=== PATIENT | male | born 1970 | race Two or more races ===

== ENCOUNTER 2019-02-14 15:01 | Emergency (ER) | payer MEDICARE, OTHER ==
[~2019-02-14] VITALS: Ht 165.1 cm; Wt 90.9 kg
[~2019-02-14 15:01] MED LIST: ALBUTEROL 2 PUFFS IH; BENZ1TAB70 PO; DIVA-78 PO; GABA-531 PO; PARO30TA76 PO; RAMI5CAP67 PO; TRIL8 PO
[2019-02-14 16:30] VITALS: BP 158/71
[2019-02-14 17:08] LABS: BASOPHILS % (AUTO) 1.2 % (0.0-2.0); EOSINOPHILS % (AUTO) 2.4 % (1.0-6.0); HEMATOCRIT 50.5 % (41-53); HEMOGLOBIN 17.3 g/dL (13.5-17.5); LYMPHOCYTES # (AUTO) 2.6 K/uL (1.0-4.8); MEAN CORPUSCULAR HEMOGLOBIN 29.8 pg (26.0-34.0); MEAN CORPUSCULAR HGB CONC 34.2 G/dL (31.0-37.0); MEAN CORPUSCULAR VOLUME 87 fL (80-100); MONOCYTES # (AUTO) 0.7 K/uL (0.1-1.0); MONOCYTES % (AUTO) 6.9 % (2.0-9.0); NEUTROPHILS % (AUTO) 65.5 % (40.0-70.0); PLATELET COUNT (AUTO) 304 K/uL (150-450); RED BLOOD CELL COUNT(AUTO) 5.79 MIL/uL (4.50-5.90); RED CELL DISTRIBUTION WIDTH 14.4 % (11.5-14.5)
[2019-02-14 17:20] LABS: ANION GAP 10 mmol/L (8-16); CARBON DIOXIDE 24 mmol/L (22-29); CHLORIDE 101 mmol/L (98-107); CREATININE 0.91 mg/dL (0.60-1.30); GLUCOSE,RANDOM 118 mg/dL (70-110); POTASSIUM 3.6 mmol/L (3.5-5.1); SODIUM SERUM 135 mmol/L (136-145); UREA NITROGEN, BLOOD 17 mg/dL (7-18)
[2019-02-14 17:21] LABS: CALCIUM, TOTAL 8.8 mg/dL (8.8-10.5); GLOMERULAR FILTR. RATE CALC > 60 mL/min (>60)
[2019-02-14 17:27] LABS: ALANINE AMINOTRANSFERASE 27 U/L (12-78); ALBUMIN 4.1 g/dL (3.4-5.0); ALKALINE PHOSPHATASE 127 U/L (46-116); ASPARTATE AMINOTRANSFERASE 26 U/L (15-37); BILIRUBIN,TOTAL 0.5 mg/dL (0.1-1.0); TOTAL PROTEIN, SERUM 7.9 g/dL (6.4-8.2)
[2019-02-14 17:50] LABS: VALPROIC ACID < 3 mcg/mL (50-100)
== END 2019-02-14 18:30 | disposition left against medical advice (07) ==
LOC: EMS 15:02
DX: Z53.21 Procedure and treatment not carried out due to patient leaving prior to being seen by health care provider (principal)
CPT/HCPCS: 80053; 80164; 85025; G0480

== ENCOUNTER 2019-02-22 11:29 | Emergency (ER) | payer MEDICARE, OTHER ==
[~2019-02-22] VITALS: Ht 175.3 cm; Wt 90.9 kg
[2019-02-22 11:35] VITALS: BP 155/92
[2019-02-22] MEDS ORDERED: CLON.5 PO (11:40)
== END 2019-02-22 13:29 | disposition home or self-care (01) ==
LOC: EMS 11:33
DX: M79.644 Pain in right finger(s) (principal); F17.200 Nicotine dependence, unspecified, uncomplicated; Z88.8 Allergy status to other drugs, medicaments and biological substances

== ENCOUNTER 2019-03-01 10:35 | Inpatient (IN) | payer MEDICARE, MEDICAID ==
[~2019-03-01] VITALS: Ht 172.7 cm; Wt 89.4 kg
[~2019-03-01 10:35] MED LIST changes: +CLON.5 PO
[2019-03-01 12:31] LABS: BASOPHILS % (AUTO) 1.1 % (0.0-2.0); EOSINOPHILS % (AUTO) 2.2 % (1.0-6.0); HEMATOCRIT 50.1 % (41-53); HEMOGLOBIN 17.1 g/dL (13.5-17.5); LYMPHOCYTES # (AUTO) 2.4 K/uL (1.0-4.8); LYMPHOCYTES % (AUTO) 22.6 % (22.0-44.0); MEAN CORPUSCULAR HGB CONC 34.2 G/dL (31.0-37.0); MEAN CORPUSCULAR VOLUME 88 fL (80-100); MONOCYTES # (AUTO) 0.8 K/uL (0.1-1.0); MONOCYTES % (AUTO) 7.4 % (2.0-9.0); NEUTROPHILS % (AUTO) 66.7 % (40.0-70.0); RED BLOOD CELL COUNT(AUTO) 5.72 MIL/uL (4.50-5.90)
[2019-03-01 12:34] LABS: ANION GAP 9 mmol/L (8-16); CALCIUM, TOTAL 9.3 mg/dL (8.8-10.5); CARBON DIOXIDE 27 mmol/L (22-29); CHLORIDE 101 mmol/L (98-107); CREATININE 0.78 mg/dL (0.60-1.30); GLOMERULAR FILTR. RATE CALC > 60 mL/min (>60); GLUCOSE,RANDOM 131 mg/dL (70-110); SODIUM SERUM 137 mmol/L (136-145); UREA NITROGEN, BLOOD 11 mg/dL (7-18)
[2019-03-01 12:40] LABS: ALANINE AMINOTRANSFERASE 49 U/L (12-78); ALKALINE PHOSPHATASE 152 U/L (46-116); ASPARTATE AMINOTRANSFERASE 40 U/L (15-37); BILIRUBIN,TOTAL 0.3 mg/dL (0.1-1.0); TOTAL PROTEIN, SERUM 7.9 g/dL (6.4-8.2)
[2019-03-01 12:41] LABS: VALPROIC ACID < 3 mcg/mL (50-100)
[2019-03-01 12:42] LABS: PLATELET COUNT (AUTO) 313 K/uL (150-450)
[2019-03-01] MEDS ORDERED: HALOPERIDOL 5 MG TABLET PO PRN (14:00)
[2019-03-01] MEDS ORDERED: ZOLPIDEM TARTRATE 10 MG TABLET PO PRN (14:00)
[2019-03-01] MEDS ORDERED: LORazepam 2 MG TABLET PO PRN (14:00)
[2019-03-01] MEDS ORDERED: MAGNESIUM HYDROXIDE SUSPENSION 30 ML UDCUP PO PRN (16:00)
[2019-03-01] MEDS ORDERED: CloNIDine HCL 0.1 MG TABLET PO PRN (16:00)
[2019-03-01] MEDS ORDERED: ALBUTEROL SULFATE HFA 90 MCG/PUFF 8 GM INHALER IH PRN (16:00)
[2019-03-01] MEDS ORDERED: ONDANSETRON HCL 4 MG TABLET PO PRN (16:00)
[2019-03-01] MEDS ORDERED: NICOTINE 14 MG/24 HOUR PATCH TD PRN (16:00)
[2019-03-01] MEDS ORDERED: IBUPROFEN 400 MG TABLET PO PRN (16:00)
[2019-03-01] MEDS ORDERED: GuaiFENesin/D-METHORPHAN [SUGAR-FREE] 200-20MG/10 ML SYRUP UDCUP PO PRN (16:00)
[2019-03-01] MEDS ORDERED: PETROLATUM,WHITE 28 GM JELLY TP PRN (16:00)
[2019-03-01] MEDS ORDERED: ACETAMINOPHEN 325 MG TABLET PO PRN (16:00)
[2019-03-01] MEDS ORDERED: MAG HYDROX/AL HYDROX/SIMETH ES 30 ML SUSPENSION UDCUP PO PRN (16:00)
[2019-03-01] MEDS ORDERED: LOPERAMIDE HCL 2 MG CAPSULE PO PRN (16:00)
[2019-03-01] MEDS ORDERED: DOCUSATE SODIUM 100 MG CAPSULE PO PRN (16:00)
[2019-03-01 16:45] VITALS: BP 130/85
[2019-03-02] MEDS ORDERED: INFLUENZA VIRUS VACCINE QVS 2019-20 (3YR+)/PF 60 MCG/0.5 ML SYRINGE IM ONE (00:45)
[2019-03-02] MEDS ORDERED: PNEUMOCOCCAL VACCINE POLYVALENT 0.5 ML VIAL [PPSV23] IM ONE (02:15)
[2019-03-02 06:43] VITALS: BP 134/68
[2019-03-02 07:57] LABS: CHOL/HDL RATIO 3.8 (4.2-7.3); FREE T4 (FREE THYROXINE) 0.97 ng/dL (0.76-1.46); THYROID STIMULATING HORMONE 1.17 uIU/mL (0.36-3.74)
[2019-03-02 08:19] VITALS: BP 122/82
[2019-03-02] MEDS: RAMIPRIL 5 MG CAPSULE PO SCH (08:19)
[2019-03-02] MEDS: FLUoxetine HCL 20 MG CAPSULE PO SCH (11:30)
[2019-03-02 16:02] VITALS: BP 111/69
[2019-03-02] MEDS: DIVALPROEX SODIUM 500 MG DR TABLET PO SCH (16:34)
[2019-03-02] MEDS: RisperiDONE 4 MG TABLET PO SCH (16:34)
[2019-03-03 00:28] VITALS: BP 118/72
[2019-03-03 08:15] VITALS: BP 140/80
[2019-03-03] MEDS: RisperiDONE 4 MG TABLET PO SCH ×2 (09:00→16:22)
[2019-03-03] MEDS: DIVALPROEX SODIUM 500 MG DR TABLET PO SCH ×2 (09:00→16:22)
[2019-03-03] MEDS: RAMIPRIL 5 MG CAPSULE PO SCH (09:00)
[2019-03-03] MEDS: FLUoxetine HCL 20 MG CAPSULE PO SCH ×2 (09:00→14:57)
[2019-03-03 22:07] VITALS: BP 136/70
[2019-03-04 00:07] VITALS: BP 131/82
[2019-03-04] MEDS: RAMIPRIL 5 MG CAPSULE PO SCH (08:38)
[2019-03-04] MEDS: RisperiDONE 4 MG TABLET PO SCH ×2 (08:38→16:30)
[2019-03-04] MEDS: FLUoxetine HCL 20 MG CAPSULE PO SCH (08:38)
[2019-03-04] MEDS: DIVALPROEX SODIUM 500 MG DR TABLET PO SCH ×2 (08:42→16:30)
[2019-03-04 10:34] VITALS: BP 136/86
[2019-03-04 16:06] VITALS: BP 124/64
[2019-03-05 00:43] VITALS: BP 130/65
[2019-03-05] MEDS: RAMIPRIL 5 MG CAPSULE PO SCH (08:07)
[2019-03-05] MEDS: DIVALPROEX SODIUM 500 MG DR TABLET PO SCH ×2 (08:08→16:42)
[2019-03-05] MEDS: FLUoxetine HCL 20 MG CAPSULE PO SCH (08:08)
[2019-03-05] MEDS: RisperiDONE 4 MG TABLET PO SCH ×2 (08:08→16:42)
[2019-03-05 08:21] VITALS: BP 140/83
[2019-03-05 16:06] VITALS: BP 120/70
[2019-03-06 00:11] VITALS: BP 127/63
[2019-03-06] MEDS: FLUoxetine HCL 20 MG CAPSULE PO SCH (08:08)
[2019-03-06] MEDS: RisperiDONE 4 MG TABLET PO SCH ×2 (08:08→17:29)
[2019-03-06] MEDS: DIVALPROEX SODIUM 500 MG DR TABLET PO SCH ×2 (08:08→17:29)
[2019-03-06] MEDS: RAMIPRIL 5 MG CAPSULE PO SCH (08:08)
[2019-03-06 08:39] VITALS: BP 135/88
[2019-03-06 16:03] VITALS: BP 123/80
[2019-03-07 08:47] VITALS: BP 110/81
[2019-03-07] MEDS: DIVALPROEX SODIUM 500 MG DR TABLET PO SCH ×2 (09:08→16:30)
[2019-03-07] MEDS: RisperiDONE 4 MG TABLET PO SCH ×2 (09:08→16:30)
[2019-03-07] MEDS: RAMIPRIL 5 MG CAPSULE PO SCH (09:08)
[2019-03-07] MEDS: FLUoxetine HCL 20 MG CAPSULE PO SCH (09:08)
[2019-03-07 16:29] VITALS: BP 128/75
[2019-03-08 00:07] VITALS: BP 122/71
[2019-03-08 08:04] VITALS: BP 132/84
[2019-03-08] MEDS: DIVALPROEX SODIUM 500 MG DR TABLET PO SCH ×2 (08:07→16:35)
[2019-03-08] MEDS: FLUoxetine HCL 20 MG CAPSULE PO SCH (08:07)
[2019-03-08] MEDS: RisperiDONE 4 MG TABLET PO SCH ×2 (08:07→16:35)
[2019-03-08] MEDS: RAMIPRIL 5 MG CAPSULE PO SCH (08:07)
[2019-03-08 16:03] VITALS: BP 143/77
[2019-03-09 05:54] VITALS: BP 140/93
[2019-03-09] MEDS: RAMIPRIL 5 MG CAPSULE PO SCH (08:08)
[2019-03-09] MEDS: DIVALPROEX SODIUM 500 MG DR TABLET PO SCH ×2 (08:08→16:07)
[2019-03-09] MEDS: FLUoxetine HCL 20 MG CAPSULE PO SCH (08:08)
[2019-03-09] MEDS: RisperiDONE 4 MG TABLET PO SCH ×2 (08:08→16:07)
[2019-03-09 08:16] VITALS: BP 125/80
[2019-03-09 16:03] VITALS: BP 124/80
[2019-03-10 00:36] VITALS: BP 130/63
[2019-03-10] MEDS ORDERED: DIVA-78 PO (05:51)
[2019-03-10] MEDS ORDERED: RISP4 PO (05:52)
[2019-03-10] MEDS ORDERED: FLUO-191 PO (05:52)
[2019-03-10 08:04] VITALS: BP 126/89
[2019-03-10] MEDS: RAMIPRIL 5 MG CAPSULE PO SCH (08:37)
[2019-03-10] MEDS: RisperiDONE 4 MG TABLET PO SCH (08:37)
[2019-03-10] MEDS: DIVALPROEX SODIUM 500 MG DR TABLET PO SCH (08:37)
[2019-03-10] MEDS: FLUoxetine HCL 20 MG CAPSULE PO SCH (08:37)
== END 2019-03-10 13:20 | disposition home or self-care (01) | DRG 885 ==
LOC: EMS 10:39 → B2X 14:43
PROVIDERS: ADMIT Psychiatry & Neurology Psychiatry; ATTEND Psychiatry & Neurology Psychiatry
DX: F20.0 Paranoid schizophrenia (principal); F17.210 Nicotine dependence, cigarettes, uncomplicated; I10 Essential (primary) hypertension; J45.909 Unspecified asthma, uncomplicated; Z91.19 Patient's noncompliance with other medical treatment and regimen
CPT/HCPCS: 83036; 84439; 84443; 87081; G0480

== ENCOUNTER 2019-05-05 11:20 | Inpatient (IN) | payer MEDICARE, MEDICAID ==
[~2019-05-05 11:20] MED LIST changes: -ALBUTEROL 2 PUFFS IH; -BENZ1TAB70 PO; -CLON.5 PO; +FLUO-191 PO; -GABA-531 PO; -PARO30TA76 PO; +RISP4 PO; -TRIL8 PO
[2019-05-05] MEDS ORDERED: DiphenhydrAMINE HCL 50 MG/ML VIAL IM ONE (11:30)
[2019-05-05] MEDS ORDERED: HALOPERIDOL LACTATE 5 MG/ML VIAL IM ONE (11:30)
[2019-05-05] MEDS ORDERED: LORazepam 2 MG/ML VIAL IM ONE (11:30)
[2019-05-05] MEDS ORDERED: LORazepam 2 MG TABLET PO PRN (12:00)
[2019-05-05] MEDS ORDERED: ZOLPIDEM TARTRATE 10 MG TABLET PO PRN (12:00)
[2019-05-05] MEDS ORDERED: HALOPERIDOL 5 MG TABLET PO PRN (12:00)
[2019-05-05] MEDS: DIVALPROEX SODIUM 500 MG DR TABLET PO SCH (16:46)
[2019-05-05] MEDS: RisperiDONE 4 MG TABLET PO SCH (16:46)
[2019-05-05] MEDS ORDERED: ALBUTEROL SULFATE HFA 90 MCG/PUFF 8 GM INHALER IH PRN (17:15)
[2019-05-05] MEDS ORDERED: MAG HYDROX/AL HYDROX/SIMETH ES 30 ML SUSPENSION UDCUP PO PRN (17:15)
[2019-05-05] MEDS ORDERED: ACETAMINOPHEN 325 MG TABLET PO PRN (17:15)
[2019-05-05] MEDS ORDERED: CloNIDine HCL 0.1 MG TABLET PO PRN (17:15)
[2019-05-05] MEDS ORDERED: LOPERAMIDE HCL 2 MG CAPSULE PO PRN (17:15)
[2019-05-05] MEDS ORDERED: DOCUSATE SODIUM 100 MG CAPSULE PO PRN (17:15)
[2019-05-05] MEDS ORDERED: IBUPROFEN 400 MG TABLET PO PRN (17:15)
[2019-05-05] MEDS ORDERED: ONDANSETRON HCL 4 MG TABLET PO PRN (17:15)
[2019-05-05] MEDS ORDERED: MAGNESIUM HYDROXIDE SUSPENSION 30 ML UDCUP PO PRN (17:15)
[2019-05-05] MEDS ORDERED: NICOTINE 14 MG/24 HOUR PATCH TD PRN (17:15)
[2019-05-05] MEDS ORDERED: PETROLATUM,WHITE 28 GM JELLY TP PRN (17:15)
[2019-05-05] MEDS ORDERED: GuaiFENesin/D-METHORPHAN [SUGAR-FREE] 200-20MG/10 ML SYRUP UDCUP PO PRN (17:15)
[2019-05-05 17:18] VITALS: BP 135/89
[2019-05-06 06:09] VITALS: BP 129/88
[2019-05-06 08:14] LABS: BASOPHILS % (AUTO) 1.2 % (0.0-2.0); EOSINOPHILS % (AUTO) 4.9 % (1.0-6.0); HEMATOCRIT 48.9 % (41-53); HEMOGLOBIN 16.4 g/dL (13.5-17.5); LYMPHOCYTES # (AUTO) 2.4 K/uL (1.0-4.8); LYMPHOCYTES % (AUTO) 28.8 % (22.0-44.0); MEAN CORPUSCULAR HEMOGLOBIN 29.8 pg (26.0-34.0); MEAN CORPUSCULAR HGB CONC 33.5 G/dL (31.0-37.0); MEAN CORPUSCULAR VOLUME 89 fL (80-100); MONOCYTES # (AUTO) 0.6 K/uL (0.1-1.0); NEUTROPHILS # (AUTO) 4.8 K/uL (1.8-7.7); NEUTROPHILS % (AUTO) 58.1 % (40.0-70.0); PLATELET COUNT (AUTO) 254 K/uL (150-450); RED CELL DISTRIBUTION WIDTH 13.4 % (11.5-14.5)
[2019-05-06 08:18] VITALS: BP 132/82
[2019-05-06] MEDS: RisperiDONE 4 MG TABLET PO SCH ×2 (08:23→16:31)
[2019-05-06] MEDS: FLUoxetine HCL 20 MG CAPSULE PO SCH (08:23)
[2019-05-06] MEDS: DIVALPROEX SODIUM 500 MG DR TABLET PO SCH ×2 (08:23→16:31)
[2019-05-06 08:39] LABS: ALANINE AMINOTRANSFERASE 29 U/L (12-78); ALBUMIN 3.5 g/dL (3.4-5.0); ALKALINE PHOSPHATASE 88 U/L (46-116); ANION GAP 7 mmol/L (8-16); ASPARTATE AMINOTRANSFERASE 22 U/L (15-37); BILIRUBIN,TOTAL 0.3 mg/dL (0.1-1.0); CALCIUM, TOTAL 9.1 mg/dL (8.8-10.5); CARBON DIOXIDE 29 mmol/L (22-29); CHLORIDE 102 mmol/L (98-107); CHOL/HDL RATIO 3.6 (4.2-7.3); CHOLESTEROL 127 mg/dL (131-200); CREATININE 0.79 mg/dL (0.60-1.30); GLOMERULAR FILTR. RATE CALC > 60 mL/min (>60); GLUCOSE,RANDOM 100 mg/dL (70-110); HDL CHOLESTEROL 35 mg/dL (40-60); LDL CHOL (CALC.) 67 mg/dL (0-130); POTASSIUM 4.1 mmol/L (3.5-5.1); SODIUM SERUM 138 mmol/L (136-145); TOTAL PROTEIN, SERUM 7.4 g/dL (6.4-8.2); TRIGLYCERIDES 126 mg/dL (15-150); UREA NITROGEN, BLOOD 14 mg/dL (7-18)
[2019-05-06 08:42] LABS: HEMOGLOBIN A1C 5.5 % (3.8-5.6)
[2019-05-06] MEDS ORDERED: IBUPROFEN 400 MG TABLET PO PRN (09:45)
[2019-05-06] MEDS ORDERED: ALBUTEROL SULFATE HFA 90 MCG/PUFF 8 GM INHALER IH PRN (09:45)
[2019-05-06] MEDS ORDERED: LOPERAMIDE HCL 2 MG CAPSULE PO PRN (09:45)
[2019-05-06] MEDS ORDERED: CloNIDine HCL 0.1 MG TABLET PO PRN (09:45)
[2019-05-06] MEDS ORDERED: DOCUSATE SODIUM 100 MG CAPSULE PO PRN (09:45)
[2019-05-06] MEDS ORDERED: GuaiFENesin/D-METHORPHAN [SUGAR-FREE] 200-20MG/10 ML SYRUP UDCUP PO PRN (09:45)
[2019-05-06] MEDS ORDERED: ONDANSETRON HCL 4 MG TABLET PO PRN (09:45)
[2019-05-06] MEDS ORDERED: MAGNESIUM HYDROXIDE SUSPENSION 30 ML UDCUP PO PRN (09:45)
[2019-05-06] MEDS ORDERED: NICOTINE 14 MG/24 HOUR PATCH TD PRN (09:45)
[2019-05-06] MEDS ORDERED: PETROLATUM,WHITE 28 GM JELLY TP PRN (09:45)
[2019-05-06] MEDS ORDERED: ACETAMINOPHEN 325 MG TABLET PO PRN (09:45)
[2019-05-06] MEDS ORDERED: MAG HYDROX/AL HYDROX/SIMETH ES 30 ML SUSPENSION UDCUP PO PRN (09:45)
[2019-05-06] MEDS ORDERED: INFLUENZA VIRUS VACCINE QVS 2019-20 (3YR+)/PF 60 MCG/0.5 ML SYRINGE IM ONE (16:00)
[2019-05-06 16:10] VITALS: BP 125/87
[2019-05-07 00:13] VITALS: BP 123/85
[2019-05-07 07:52] LABS: ALANINE AMINOTRANSFERASE 29 U/L (12-78); ALBUMIN 3.4 g/dL (3.4-5.0); ALKALINE PHOSPHATASE 90 U/L (46-116); ANION GAP 8 mmol/L (8-16); ASPARTATE AMINOTRANSFERASE 20 U/L (15-37); BILIRUBIN,TOTAL 0.3 mg/dL (0.1-1.0); CALCIUM, TOTAL 9.2 mg/dL (8.8-10.5); CARBON DIOXIDE 29 mmol/L (22-29); CHLORIDE 102 mmol/L (98-107); CREATININE 0.77 mg/dL (0.60-1.30); GLOMERULAR FILTR. RATE CALC > 60 mL/min (>60); GLUCOSE,RANDOM 99 mg/dL (70-110); POTASSIUM 4.2 mmol/L (3.5-5.1); SODIUM SERUM 139 mmol/L (136-145); TOTAL PROTEIN, SERUM 6.8 g/dL (6.4-8.2); UREA NITROGEN, BLOOD 13 mg/dL (7-18)
[2019-05-07 08:02] VITALS: BP 133/89
[2019-05-07] MEDS: FLUoxetine HCL 20 MG CAPSULE PO SCH (08:15)
[2019-05-07] MEDS: RisperiDONE 4 MG TABLET PO SCH ×2 (08:15→16:28)
[2019-05-07] MEDS: DIVALPROEX SODIUM 500 MG DR TABLET PO SCH ×2 (08:15→16:28)
[2019-05-07] MEDS: RAMIPRIL 5 MG CAPSULE PO SCH (08:15)
[2019-05-07] MEDS: BACITRACIN 28.4 GM OINTMENT TP SCH ×2 (15:19→19:55)
[2019-05-07 16:07] VITALS: BP 131/79
[2019-05-08 00:19] VITALS: BP 140/70
[2019-05-08 08:04] VITALS: BP 117/82
[2019-05-08] MEDS: FLUoxetine HCL 20 MG CAPSULE PO SCH (09:28)
[2019-05-08] MEDS: DIVALPROEX SODIUM 500 MG DR TABLET PO SCH ×2 (09:28→16:10)
[2019-05-08] MEDS: RisperiDONE 4 MG TABLET PO SCH (09:28)
[2019-05-08] MEDS: BACITRACIN 28.4 GM OINTMENT TP SCH ×2 (10:54→16:12)
[2019-05-08] MEDS ORDERED: PALIPERIDONE PALMITATE 234 MG/1.5 ML SYRINGE IM SCH (11:00)
[2019-05-08 12:35] VITALS: BP 134/91
[2019-05-08] MEDS: RAMIPRIL 5 MG CAPSULE PO SCH (12:44)
[2019-05-08 16:07] VITALS: BP 124/86
[2019-05-09 00:29] VITALS: BP 118/65
[2019-05-09] MEDS: DIVALPROEX SODIUM 500 MG DR TABLET PO SCH ×2 (08:22→16:21)
[2019-05-09] MEDS: FLUoxetine HCL 20 MG CAPSULE PO SCH (08:22)
[2019-05-09] MEDS: RAMIPRIL 5 MG CAPSULE PO SCH (08:22)
[2019-05-09] MEDS: BACITRACIN 28.4 GM OINTMENT TP SCH ×2 (08:23→16:21)
[2019-05-09 08:42] VITALS: BP 149/88
[2019-05-09 16:02] VITALS: BP 118/81
[2019-05-09] MEDS: RisperiDONE 4 MG TABLET PO SCH (20:31)
[2019-05-10 06:28] VITALS: BP 128/78
[2019-05-10 08:07] VITALS: BP 140/83
[2019-05-10] MEDS: DIVALPROEX SODIUM 500 MG DR TABLET PO SCH ×2 (08:51→16:46)
[2019-05-10] MEDS: BACITRACIN 28.4 GM OINTMENT TP SCH ×2 (08:51→16:45)
[2019-05-10] MEDS: FLUoxetine HCL 20 MG CAPSULE PO SCH (08:51)
[2019-05-10] MEDS: RAMIPRIL 5 MG CAPSULE PO SCH (08:51)
[2019-05-10 16:02] VITALS: BP 116/75
[2019-05-10] MEDS: RisperiDONE 4 MG TABLET PO SCH (20:19)
[2019-05-11 02:31] VITALS: BP 117/73
[2019-05-11 08:24] VITALS: BP 155/80
[2019-05-11] MEDS: FLUoxetine HCL 20 MG CAPSULE PO SCH (08:59)
[2019-05-11] MEDS: RAMIPRIL 5 MG CAPSULE PO SCH (08:59)
[2019-05-11] MEDS: DIVALPROEX SODIUM 500 MG DR TABLET PO SCH ×2 (08:59→16:14)
[2019-05-11] MEDS: BACITRACIN 28.4 GM OINTMENT TP SCH ×2 (10:48→16:16)
[2019-05-11 16:02] VITALS: BP 119/79
[2019-05-11] MEDS: RisperiDONE 4 MG TABLET PO SCH (20:39)
[2019-05-12 00:48] VITALS: BP 138/76
[2019-05-12 08:09] VITALS: BP 120/69
[2019-05-12] MEDS: DIVALPROEX SODIUM 500 MG DR TABLET PO SCH ×2 (08:22→16:45)
[2019-05-12] MEDS: BACITRACIN 28.4 GM OINTMENT TP SCH ×2 (08:22→16:46)
[2019-05-12] MEDS: FLUoxetine HCL 20 MG CAPSULE PO SCH (08:22)
[2019-05-12] MEDS: RAMIPRIL 5 MG CAPSULE PO SCH (08:22)
[2019-05-12 17:20] VITALS: BP 111/70
[2019-05-12] MEDS: RisperiDONE 4 MG TABLET PO SCH (20:39)
[2019-05-13 01:54] VITALS: BP 111/73
[2019-05-13 08:04] VITALS: BP 124/89
[2019-05-13] MEDS: DIVALPROEX SODIUM 500 MG DR TABLET PO SCH ×2 (08:27→16:28)
[2019-05-13] MEDS: RAMIPRIL 5 MG CAPSULE PO SCH (08:27)
[2019-05-13] MEDS: FLUoxetine HCL 20 MG CAPSULE PO SCH (08:27)
[2019-05-13] MEDS: BACITRACIN 28.4 GM OINTMENT TP SCH ×2 (08:28→16:28)
[2019-05-13 16:01] VITALS: BP 128/78
[2019-05-13] MEDS: RisperiDONE 4 MG TABLET PO SCH (20:31)
[2019-05-14 00:20] VITALS: BP 121/69
[2019-05-14 03:07] VITALS: BP 113/72
[2019-05-14] MEDS: FLUoxetine HCL 20 MG CAPSULE PO SCH (08:27)
[2019-05-14] MEDS: DIVALPROEX SODIUM 500 MG DR TABLET PO SCH (08:27)
[2019-05-14] MEDS: RAMIPRIL 5 MG CAPSULE PO SCH (08:27)
[2019-05-14 08:30] VITALS: BP 116/68
[2019-05-14] MEDS: BACITRACIN 28.4 GM OINTMENT TP SCH (09:06)
[2019-05-14] MEDS ORDERED: FLUO-191 PO (09:22)
[2019-05-14] MEDS ORDERED: DIVA-78 PO (09:22)
[2019-05-14] MEDS ORDERED: PALI234D IM (09:22)
[2019-05-14] MEDS ORDERED: RISP4 PO (09:22)
[2019-05-14] MEDS ORDERED: BACI500P3 TP (09:53)
[2019-05-14] MEDS ORDERED: RAMI5CAP67 PO (09:54)
== END 2019-05-14 10:35 | disposition home or self-care (01) | DRG 885 ==
LOC: B2X 12:12
DX: F20.0 Paranoid schizophrenia (principal); F94.0 Selective mutism; R73.9 Hyperglycemia, unspecified; I10 Essential (primary) hypertension; J45.909 Unspecified asthma, uncomplicated; Z79.899 Other long term (current) drug therapy; Z91.5 Personal history of self-harm
CPT/HCPCS: 83036; 84439; 84443; J1200; J1630; J2060

== ENCOUNTER 2019-12-07 19:43 | Inpatient (IN) | payer MEDICARE, MEDICAID ==
[~2019-12-07] VITALS: Ht 170.2 cm; Wt 94.5 kg
[~2019-12-07 19:43] MED LIST changes: +BACI500P3 TP; +DIVA-112 PO; -DIVA-78 PO; +PALI234D IM; -RISP4 PO; +RISP4TAB73 PO
[2019-12-07 21:23] LABS: BASOPHILS % (AUTO) 0.7 % (0.0-2.0); EOSINOPHILS % (AUTO) 3.3 % (1.0-6.0); HEMATOCRIT 50.6 % (41-53); HEMOGLOBIN 16.7 g/dL (13.5-17.5); LYMPHOCYTES # (AUTO) 2.2 K/uL (1.0-4.8); LYMPHOCYTES % (AUTO) 19.6 % (22.0-44.0); MEAN CORPUSCULAR HGB CONC 33.1 G/dL (31.0-37.0); MEAN CORPUSCULAR VOLUME 88 fL (80-100); MONOCYTES # (AUTO) 0.6 K/uL (0.1-1.0); MONOCYTES % (AUTO) 5.4 % (2.0-9.0); PLATELET COUNT (AUTO) 276 K/uL (150-450); RED BLOOD CELL COUNT(AUTO) 5.77 MIL/uL (4.50-5.90); RED CELL DISTRIBUTION WIDTH 13.6 % (11.5-14.5)
[2019-12-07 21:32] LABS: ANION GAP 12 mmol/L (8-16); CALCIUM, TOTAL 9.2 mg/dL (8.8-10.5); CARBON DIOXIDE 27 mmol/L (22-29); CHLORIDE 105 mmol/L (98-107); CREATININE 0.93 mg/dL (0.60-1.30); GLOMERULAR FILTR. RATE CALC > 60 mL/min (>60); GLUCOSE,RANDOM 159 mg/dL (70-110); POTASSIUM 3.6 mmol/L (3.5-5.1); SODIUM SERUM 144 mmol/L (136-145); UREA NITROGEN, BLOOD 12 mg/dL (7-18)
[2019-12-07 21:39] LABS: ALANINE AMINOTRANSFERASE 22 U/L (12-78); ALKALINE PHOSPHATASE 116 U/L (46-116); ASPARTATE AMINOTRANSFERASE 18 U/L (15-37); BILIRUBIN,TOTAL 0.2 mg/dL (0.1-1.0); TOTAL PROTEIN, SERUM 7.5 g/dL (6.4-8.2)
[2019-12-07 21:58] LABS: VALPROIC ACID < 3 mcg/mL (50-100)
[2019-12-07] MEDS ORDERED: LORazepam 2 MG TABLET PO PRN (23:30)
[2019-12-07] MEDS ORDERED: ZOLPIDEM TARTRATE 10 MG TABLET PO PRN (23:30)
[2019-12-08 00:18] LABS: COVID AG,FIA SOURCE NASOPHARYNGEAL
[2019-12-08 00:39] LABS: CHOL/HDL RATIO 4.3 (4.2-7.3); CHOLESTEROL 149 mg/dL (131-200); HDL CHOLESTEROL 35 mg/dL (40-60); LDL CHOL (CALC.) 82 mg/dL (0-130); TRIGLYCERIDES 159 mg/dL (15-150)
[2019-12-08 03:25] VITALS: BP 143/92
[2019-12-08] MEDS ORDERED: PNEUMOCOCCAL VACCINE POLYVALENT 0.5 ML VIAL [PPSV23] IM ONE (04:15)
[2019-12-08] MEDS ORDERED: INFLUENZA VIRUS VACCINE QVS 2020-21 (6MO+)/PF 60 MCG/0.5 ML SYRINGE IM ONE (04:15)
[2019-12-08 08:00] VITALS: BP 159/99
[2019-12-08 09:16] VITALS: BP 146/79
[2019-12-08] MEDS: DIVALPROEX SODIUM 250 MG DR TABLET PO SCH ×2 (09:53→16:17)
[2019-12-08] MEDS ORDERED: GuaiFENesin/D-METHORPHAN [SUGAR-FREE] 200-20MG/10 ML SYRUP UDCUP PO PRN ×2 (13:30→20:15)
[2019-12-08] MEDS: LISINOPRIL 10 MG TABLET PO SCH (16:17)
[2019-12-08 16:27] VITALS: BP 140/83
[2019-12-08] MEDS ORDERED: BENZOCAINE 10% 7 GM GEL TP PRN (18:30)
[2019-12-08 18:54] VITALS: BP 132/86
[2019-12-08] MEDS: IBUPROFEN 600 MG TABLET PO PRN (18:57)
[2019-12-08] MEDS ORDERED: PROMETHAZINE HCL 25 MG TABLET PO PRN (20:15)
[2019-12-08] MEDS ORDERED: MAG HYDROX/AL HYDROX/SIMETH ES 30 ML SUSPENSION UDCUP PO PRN (20:15)
[2019-12-08] MEDS ORDERED: PALIPERIDONE PALMITATE 234 MG/1.5 ML SYRINGE IM ONE (20:15)
[2019-12-08] MEDS ORDERED: MAGNESIUM HYDROXIDE SUSPENSION 30 ML UDCUP PO PRN (20:15)
[2019-12-08] MEDS ORDERED: LOPERAMIDE HCL 2 MG CAPSULE PO PRN (20:15)
[2019-12-08] MEDS ORDERED: ACETAMINOPHEN 325 MG TABLET PO PRN (20:15)
[2019-12-08] MEDS ORDERED: TUBERCULIN, PURIFIED PROTEIN DERIVATIVE 5 TU/0.1 ML SYRINGE ID ONE (20:15)
[2019-12-08] MEDS ORDERED: HydrOXYzine PAMOATE 50 MG CAPSULE PO PRN (20:15)
[2019-12-08] MEDS ORDERED: OLANZapine 5 MG RAPDIS TABLET PO SCH (21:00)
[2019-12-09 07:29] LABS: HEMOGLOBIN A1C 5.6 % (3.8-5.6)
[2019-12-09 07:34] LABS: CHOL/HDL RATIO 4.1 (4.2-7.3); FREE T4 (FREE THYROXINE) 1.12 ng/dL (0.76-1.46); THYROID STIMULATING HORMONE 0.76 uIU/mL (0.36-3.74)
[2019-12-09 08:00] VITALS: BP 147/91
[2019-12-09] MEDS: LISINOPRIL 10 MG TABLET PO SCH ×2 (08:28→16:13)
[2019-12-09] MEDS: MULTIVITAMINS WITH MINERALS, THERAPEUTIC TABLET PO SCH (08:28)
[2019-12-09] MEDS: FOLIC ACID 1 MG TABLET PO SCH (08:28)
[2019-12-09] MEDS: DIVALPROEX SODIUM 500 MG DR TABLET PO SCH ×4 (08:28→16:23)
[2019-12-09] MEDS: THIAMINE 100 MG TABLET PO SCH ×2 (08:29→16:23)
[2019-12-09 16:30] VITALS: BP 131/85
[2019-12-09] MEDS: IBUPROFEN 600 MG TABLET PO PRN (16:30)
[2019-12-09] MEDS: OLANZapine 10 MG RAPDIS TABLET PO SCH (20:36)
[2019-12-10 08:00] VITALS: BP 125/74
[2019-12-10] MEDS: DIVALPROEX SODIUM 500 MG DR TABLET PO SCH ×3 (09:00→16:24)
[2019-12-10] MEDS: LISINOPRIL 10 MG TABLET PO SCH ×2 (10:27→16:23)
[2019-12-10] MEDS: MULTIVITAMINS WITH MINERALS, THERAPEUTIC TABLET PO SCH (10:27)
[2019-12-10] MEDS: THIAMINE 100 MG TABLET PO SCH ×2 (10:28→16:23)
[2019-12-10] MEDS: FOLIC ACID 1 MG TABLET PO SCH (10:28)
[2019-12-10 16:08] VITALS: BP 131/73
[2019-12-10] MEDS ORDERED: PALIPERIDONE PALMITATE 234 MG/1.5 ML SYRINGE IM ONE (19:00)
[2019-12-10] MEDS: OLANZapine 10 MG RAPDIS TABLET PO SCH (20:25)
[2019-12-11] MEDS: THIAMINE 100 MG TABLET PO SCH ×2 (08:59→16:36)
[2019-12-11] MEDS: MULTIVITAMINS WITH MINERALS, THERAPEUTIC TABLET PO SCH (08:59)
[2019-12-11] MEDS: DIVALPROEX SODIUM 500 MG DR TABLET PO SCH ×3 (08:59→16:36)
[2019-12-11] MEDS: LISINOPRIL 10 MG TABLET PO SCH ×2 (08:59→16:36)
[2019-12-11] MEDS: FOLIC ACID 1 MG TABLET PO SCH (08:59)
[2019-12-11 10:07] VITALS: BP 120/71
[2019-12-11 16:39] VITALS: BP 132/72
[2019-12-11] MEDS: OLANZapine 10 MG RAPDIS TABLET PO SCH (20:39)
[2019-12-12] MEDS: MULTIVITAMINS WITH MINERALS, THERAPEUTIC TABLET PO SCH (08:35)
[2019-12-12] MEDS: LISINOPRIL 10 MG TABLET PO SCH ×2 (08:35→16:31)
[2019-12-12] MEDS: THIAMINE 100 MG TABLET PO SCH ×2 (08:35→16:31)
[2019-12-12] MEDS: FOLIC ACID 1 MG TABLET PO SCH (08:35)
[2019-12-12] MEDS ORDERED: PALIPERIDONE PALMITATE 156 MG/ML SYRINGE IM ONE (09:00)
[2019-12-12 09:29] VITALS: BP 138/77
[2019-12-12 16:00] VITALS: BP 120/72
[2019-12-12] MEDS: IBUPROFEN 600 MG TABLET PO PRN (18:48)
[2019-12-12 18:49] VITALS: BP 146/83
[2019-12-12] MEDS: OLANZapine 10 MG RAPDIS TABLET PO SCH (20:29)
[2019-12-13] MEDS: FOLIC ACID 1 MG TABLET PO SCH (08:35)
[2019-12-13] MEDS: THIAMINE 100 MG TABLET PO SCH ×2 (08:35→16:42)
[2019-12-13] MEDS: LISINOPRIL 10 MG TABLET PO SCH ×2 (08:35→16:42)
[2019-12-13] MEDS: MULTIVITAMINS WITH MINERALS, THERAPEUTIC TABLET PO SCH (08:35)
[2019-12-13 09:27] VITALS: BP 149/79
[2019-12-13 16:19] VITALS: BP 120/73
[2019-12-13] MEDS: OLANZapine 10 MG RAPDIS TABLET PO SCH (21:12)
[2019-12-13] MEDS: IBUPROFEN 600 MG TABLET PO PRN (21:13)
[2019-12-13 21:30] VITALS: BP 132/72
[2019-12-14 08:00] VITALS: BP 144/76
[2019-12-14] MEDS: FOLIC ACID 1 MG TABLET PO SCH (08:26)
[2019-12-14] MEDS: THIAMINE 100 MG TABLET PO SCH ×2 (08:26→16:19)
[2019-12-14] MEDS: LISINOPRIL 10 MG TABLET PO SCH ×2 (08:26→16:20)
[2019-12-14] MEDS: MULTIVITAMINS WITH MINERALS, THERAPEUTIC TABLET PO SCH (08:26)
[2019-12-14] MEDS ORDERED: PALIPERIDONE PALMITATE 156 MG/ML SYRINGE IM ONE (09:00)
[2019-12-14 16:12] VITALS: BP 126/76
[2019-12-14] MEDS: IBUPROFEN 600 MG TABLET PO PRN (19:30)
[2019-12-14] MEDS: OLANZapine 10 MG RAPDIS TABLET PO SCH (20:11)
[2019-12-14] MEDS ORDERED: BusPIRone HCL 10 MG TABLET PO SCH (21:00)
[2019-12-15] MEDS: MULTIVITAMINS WITH MINERALS, THERAPEUTIC TABLET PO SCH (08:21)
[2019-12-15] MEDS: FOLIC ACID 1 MG TABLET PO SCH (08:22)
[2019-12-15] MEDS: THIAMINE 100 MG TABLET PO SCH ×2 (08:23→16:21)
[2019-12-15] MEDS: LISINOPRIL 10 MG TABLET PO SCH ×2 (08:23→16:17)
[2019-12-15 09:12] VITALS: BP 125/81
[2019-12-15 16:57] VITALS: BP 144/89
[2019-12-15] MEDS ORDERED: OLAN10TA22 PO (19:10)
[2019-12-15] MEDS ORDERED: BUSP10TA23 PO (19:10)
[2019-12-15] MEDS ORDERED: BACI28.42 TP (19:15)
[2019-12-15] MEDS ORDERED: PALI234D IM (19:15)
[2019-12-15] MEDS: OLANZapine 10 MG RAPDIS TABLET PO SCH (20:18)
[2019-12-15] MEDS: IBUPROFEN 600 MG TABLET PO PRN (20:22)
[2019-12-16] MEDS: MULTIVITAMINS WITH MINERALS, THERAPEUTIC TABLET PO SCH (09:11)
[2019-12-16] MEDS: LISINOPRIL 10 MG TABLET PO SCH ×2 (09:11→16:17)
[2019-12-16] MEDS: FOLIC ACID 1 MG TABLET PO SCH (09:11)
[2019-12-16] MEDS: BusPIRone HCL 10 MG TABLET PO SCH ×2 (09:12→16:17)
[2019-12-16] MEDS: THIAMINE 100 MG TABLET PO SCH ×2 (09:13→16:18)
[2019-12-16 09:52] VITALS: BP 115/82
[2019-12-16] MEDS: IBUPROFEN 600 MG TABLET PO PRN ×2 (13:11→19:35)
[2019-12-16 17:37] VITALS: BP 129/76
[2019-12-16] MEDS: OLANZapine 10 MG RAPDIS TABLET PO SCH (21:45)
[2019-12-17] MEDS: MULTIVITAMINS WITH MINERALS, THERAPEUTIC TABLET PO SCH (08:22)
[2019-12-17] MEDS: LISINOPRIL 10 MG TABLET PO SCH ×2 (08:22→16:06)
[2019-12-17] MEDS: FOLIC ACID 1 MG TABLET PO SCH (08:23)
[2019-12-17] MEDS: THIAMINE 100 MG TABLET PO SCH ×2 (08:23→16:07)
[2019-12-17] MEDS: BusPIRone HCL 10 MG TABLET PO SCH ×2 (08:23→16:03)
[2019-12-17 09:47] VITALS: BP 141/83
[2019-12-17 14:18] VITALS: BP 137/82
[2019-12-17] MEDS: IBUPROFEN 600 MG TABLET PO PRN ×2 (14:18→20:17)
[2019-12-17 16:49] VITALS: BP 149/90
[2019-12-17] MEDS: OLANZapine 10 MG RAPDIS TABLET PO SCH (20:15)
[2019-12-17 20:18] VITALS: BP 134/69
[2019-12-18 08:00] VITALS: BP 154/91
[2019-12-18] MEDS: MULTIVITAMINS WITH MINERALS, THERAPEUTIC TABLET PO SCH (08:18)
[2019-12-18] MEDS: LISINOPRIL 10 MG TABLET PO SCH ×2 (08:18→17:28)
[2019-12-18] MEDS: BusPIRone HCL 10 MG TABLET PO SCH ×2 (08:18→17:28)
[2019-12-18] MEDS: FOLIC ACID 1 MG TABLET PO SCH (08:18)
[2019-12-18] MEDS: THIAMINE 100 MG TABLET PO SCH ×2 (08:19→17:00)
[2019-12-18 17:03] VITALS: BP 147/95
[2019-12-18] MEDS: OLANZapine 10 MG RAPDIS TABLET PO SCH (20:04)
[2019-12-19] MEDS: LISINOPRIL 10 MG TABLET PO SCH ×2 (09:59→16:13)
[2019-12-19] MEDS: MULTIVITAMINS WITH MINERALS, THERAPEUTIC TABLET PO SCH (09:59)
[2019-12-19] MEDS: BusPIRone HCL 15 MG TABLET PO SCH ×2 (09:59→16:13)
[2019-12-19 17:03] VITALS: BP 123/85
[2019-12-19] MEDS: OLANZapine 10 MG RAPDIS TABLET PO SCH (20:07)
[2019-12-20 08:00] VITALS: BP 152/97
[2019-12-20] MEDS: LISINOPRIL 10 MG TABLET PO SCH ×2 (09:27→15:51)
[2019-12-20] MEDS: BusPIRone HCL 15 MG TABLET PO SCH ×2 (09:30→15:51)
[2019-12-20] MEDS: MULTIVITAMINS WITH MINERALS, THERAPEUTIC TABLET PO SCH (09:30)
[2019-12-20] MEDS: OLANZapine 5 MG RAPDIS TABLET PO PRN (09:31)
[2019-12-20 16:45] VITALS: BP 138/88
[2019-12-20] MEDS: OLANZapine 10 MG RAPDIS TABLET PO SCH (20:15)
[2019-12-21] MEDS: LISINOPRIL 10 MG TABLET PO SCH ×2 (08:50→16:29)
[2019-12-21] MEDS: MULTIVITAMINS WITH MINERALS, THERAPEUTIC TABLET PO SCH (08:50)
[2019-12-21] MEDS: BusPIRone HCL 15 MG TABLET PO SCH ×2 (08:50→16:29)
[2019-12-21] MEDS ORDERED: RisperiDONE MICROSPHERES 50 MG/2 ML SYRINGE IM ONE (16:00)
[2019-12-21 16:13] VITALS: BP 122/86
[2019-12-21] MEDS ORDERED: RISPC50 IM (18:57)
[2019-12-21] MEDS ORDERED: BUSP15 PO (18:57)
[2019-12-22 08:34] VITALS: BP 146/87
[2019-12-22] MEDS: MULTIVITAMINS WITH MINERALS, THERAPEUTIC TABLET PO SCH (08:44)
[2019-12-22] MEDS: BusPIRone HCL 15 MG TABLET PO SCH ×2 (08:45→16:49)
[2019-12-22] MEDS: LISINOPRIL 10 MG TABLET PO SCH ×2 (08:45→16:49)
[2019-12-22 16:20] VITALS: BP 127/84
[2019-12-23 08:00] VITALS: BP 131/87
[2019-12-23] MEDS: LISINOPRIL 10 MG TABLET PO SCH (08:39)
[2019-12-23] MEDS: BusPIRone HCL 15 MG TABLET PO SCH (08:40)
[2019-12-23] MEDS: MULTIVITAMINS WITH MINERALS, THERAPEUTIC TABLET PO SCH (08:40)
[2019-12-23] MEDS: OLANZapine 5 MG RAPDIS TABLET PO PRN (08:40)
[2019-12-23] MEDS ORDERED: LISI-661 PO (13:50)
[2020-01-04] MEDS ORDERED: RisperiDONE MICROSPHERES 50 MG/2 ML SYRINGE IM SCH (09:00)
== END 2019-12-23 13:45 | disposition home or self-care (01) | DRG 885 ==
LOC: EMS 19:43 → 3EC 23:28
PROVIDERS: ADMIT Psychiatry & Neurology Psychiatry; ATTEND Psychiatry & Neurology Psychiatry
PROC: 3E02340 Introduction of Influenza Vaccine into Muscle, Percutaneous Approach (ICD-10-PCS; principal; 2019-12-08)
PROC: 3E0234Z Introduction of Serum, Toxoid and Vaccine into Muscle, Percutaneous Approach (ICD-10-PCS; 2019-12-08)
DX: F20.0 Paranoid schizophrenia (principal); R45.851 Suicidal ideations; I10 Essential (primary) hypertension; J44.9 Chronic obstructive pulmonary disease, unspecified; F29 Unspecified psychosis not due to a substance or known physiological condition; R41.843 Psychomotor deficit; Z55.9 Problems related to education and literacy, unspecified; Z59.9 Problem related to housing and economic circumstances, unspecified; Z65.3 Problems related to other legal circumstances; Z79.899 Other long term (current) drug therapy; Z91.14 Patient's other noncompliance with medication regimen; Z23 Encounter for immunization; Z03.818 Encounter for observation for suspected exposure to other biological agents ruled out
CPT/HCPCS: 83036; 84439; 84443; 86592; 87426; 90686; G0480; J2794; 36415-L1; 36415-TC; 71046; 71046-TC; 80061-TC

== ENCOUNTER 2022-06-03 09:59 | Inpatient (IN) | payer MEDICARE, MEDICAID ==
[~2022-06-03] VITALS: Ht 170.2 cm; Wt 93.1 kg
[~2022-06-03 09:59] MED LIST changes: -BACI500P3 TP; -FLUO-191 PO; +LISI-893 PO; -PALI234D IM; -RAMI5CAP67 PO; -RISP4TAB73 PO; +RISPC50 IM; +TRAZ-184 PO
[2022-06-03] MEDS ORDERED: HALOPERIDOL 5 MG TABLET PO PRN (10:45)
[2022-06-03 11:07] LABS: BASOPHILS % (AUTO) 1.2 % (0.0-2.0); EOSINOPHILS % (AUTO) 1.6 % (1.0-6.0); HEMATOCRIT 45.3 % (41-53); HEMOGLOBIN 15.6 g/dL (13.5-17.5); LYMPHOCYTES # (AUTO) 2.3 K/uL (1.0-4.8); LYMPHOCYTES % (AUTO) 21.4 % (22.0-44.0); MEAN CORPUSCULAR HEMOGLOBIN 29.6 pg (26.0-34.0); MEAN CORPUSCULAR HGB CONC 34.4 G/dL (31.0-37.0); MEAN CORPUSCULAR VOLUME 86 fL (80-100); MONOCYTES # (AUTO) 0.7 K/uL (0.1-1.0); MONOCYTES % (AUTO) 6.2 % (2.0-9.0); NEUTROPHILS # (AUTO) 7.6 K/uL (1.8-7.7); NEUTROPHILS % (AUTO) 69.6 % (40.0-70.0); PLATELET COUNT (AUTO) 281 K/uL (150-450); RED BLOOD CELL COUNT(AUTO) 5.28 MIL/uL (4.50-5.90); RED CELL DISTRIBUTION WIDTH 13.5 % (11.5-14.5)
[2022-06-03 11:20] LABS: ANION GAP 8 mmol/L (8-16); CALCIUM, TOTAL 8.8 mg/dL (8.8-10.5); CARBON DIOXIDE 27 mmol/L (22-29); CHLORIDE 99 mmol/L (98-107); CREATININE 0.88 mg/dL (0.60-1.30); GLOMERULAR FILTR. RATE CALC > 60 mL/min (>60); GLUCOSE,RANDOM 141 mg/dL (70-110); POTASSIUM 3.5 mmol/L (3.5-5.1); SODIUM SERUM 134 mmol/L (136-145)
[2022-06-03 11:24] LABS: ALANINE AMINOTRANSFERASE 40 U/L (12-78); ALBUMIN 3.9 g/dL (3.4-5.0); ALKALINE PHOSPHATASE 127 U/L (46-116); ASPARTATE AMINOTRANSFERASE 30 U/L (15-37); BILIRUBIN,TOTAL 0.3 mg/dL (0.1-1.0); TOTAL PROTEIN, SERUM 7.5 g/dL (6.4-8.2)
[2022-06-03 11:57] LABS: COVID AG,FIA SOURCE NASAL SWAB
[2022-06-03 19:11] LABS: APPEARANCE,URINE CLEAR (CLEAR); BILIRUBIN,URINE NEGATIVE (NEGATIVE); GLUCOSE, URINE (UA) NEGATIVE (NEGATIVE); KETONES,URINE NEGATIVE (NEGATIVE); LEUKOCYTE ESTERASE ,URINE NEGATIVE (NEGATIVE); NITRATE,URINE NEGATIVE (NEGATIVE); OCCULT BLOOD,URINE NEGATIVE (NEGATIVE); PH,URINE 6.5 (5.0-8.0); PROTEIN,URINE NEGATIVE (NEGATIVE); SPECIFIC GRAVITIY, URINE 1.022 (1.003-1.030); UROBILINOGEN,URINE <=1.0 mg/dL (<=1.0)
[2022-06-03 19:19] LABS: AMPHET/METH SCREEN,URINE NEGATIVE (NEGATIVE); BARBITURATE SCREEN, URINE NEGATIVE (NEGATIVE); BENZODIAZEPINES SCREEN,URINE NEGATIVE (NEGATIVE); CANNABINOID SCREEN,URINE NEGATIVE (NEGATIVE); COCAINE SCREEN,URINE NEGATIVE (NEGATIVE); METHADONE SCREEN, URINE NEGATIVE (NEGATIVE); OPIATE SCREEN,URINE NEGATIVE (NEGATIVE); PHENCYCLIDINE SCREEN,URINE NEGATIVE (NEGATIVE)
[2022-06-04 13:23] VITALS: BP 143/92
[2022-06-04] MEDS: LORazepam 2 MG TABLET PO PRN (14:11)
[2022-06-04 20:19] VITALS: BP 114/65
[2022-06-04] MEDS ORDERED: BENZOCAINE/MENTHOL LOZENGE PO PRN (21:00)
[2022-06-04] MEDS ORDERED: IBUPROFEN 600 MG TABLET PO PRN (21:00)
[2022-06-04] MEDS ORDERED: PETROLATUM,WHITE 28 GM JELLY TP PRN (21:00)
[2022-06-04] MEDS ORDERED: DOCUSATE SODIUM 100 MG CAPSULE PO PRN (21:00)
[2022-06-04] MEDS ORDERED: OMEPRAZOLE 20 MG CAPSULE PO PRN (21:00)
[2022-06-04] MEDS ORDERED: CloNIDine HCL 0.1 MG TABLET PO PRN (21:00)
[2022-06-04] MEDS ORDERED: ONDANSETRON HCL 4 MG TABLET PO PRN (21:00)
[2022-06-04] MEDS ORDERED: MAG HYDROX/AL HYDROX/SIMETH ES 30 ML SUSPENSION UDCUP PO PRN (21:00)
[2022-06-04] MEDS ORDERED: MAGNESIUM HYDROXIDE SUSPENSION 30 ML UDCUP PO PRN (21:00)
[2022-06-04] MEDS ORDERED: BACITRACIN 28 GM OINTMENT TP PRN (21:00)
[2022-06-04] MEDS ORDERED: ACETAMINOPHEN 325 MG TABLET PO PRN (21:00)
[2022-06-04] MEDS ORDERED: ALBUTEROL SULFATE HFA 90 MCG/PUFF 8 GM INHALER IH PRN (21:00)
[2022-06-04] MEDS ORDERED: LOPERAMIDE HCL 2 MG CAPSULE PO PRN (21:00)
[2022-06-05] MEDS: LISINOPRIL 10 MG TABLET PO SCH ×2 (08:34→16:37)
[2022-06-05] MEDS: LORazepam 2 MG TABLET PO PRN (08:34)
[2022-06-05 09:02] VITALS: BP 157/87
[2022-06-05] MEDS: DIVALPROEX SODIUM 500 MG DR TABLET PO SCH ×2 (16:37→16:54)
[2022-06-05] MEDS: RisperiDONE 3 MG TABLET PO SCH ×2 (16:37→16:54)
[2022-06-05 20:41] VITALS: BP 147/76
[2022-06-06 08:52] VITALS: BP 124/73
[2022-06-06] MEDS: LISINOPRIL 10 MG TABLET PO SCH ×2 (08:55→17:24)
[2022-06-06] MEDS: DIVALPROEX SODIUM 500 MG DR TABLET PO SCH ×3 (08:55→17:00)
[2022-06-06] MEDS: RisperiDONE 3 MG TABLET PO SCH ×3 (08:55→17:00)
[2022-06-06] MEDS ORDERED: RisperiDONE MICROSPHERES 50 MG/2 ML SYRINGE IM SCH (09:00)
[2022-06-06] MEDS: LORazepam 2 MG TABLET PO PRN (17:24)
[2022-06-06 20:23] VITALS: BP 104/75
[2022-06-07 08:38] VITALS: BP 110/70
[2022-06-07] MEDS: DIVALPROEX SODIUM 500 MG DR TABLET PO SCH ×2 (08:48→17:33)
[2022-06-07] MEDS: LISINOPRIL 10 MG TABLET PO SCH ×2 (08:48→17:34)
[2022-06-07] MEDS: RisperiDONE 3 MG TABLET PO SCH ×2 (08:48→17:00)
[2022-06-07] MEDS: LORazepam 2 MG TABLET PO PRN (17:34)
[2022-06-07 20:36] VITALS: BP 115/61
[2022-06-08 08:14] VITALS: BP 112/72
[2022-06-08] MEDS: DIVALPROEX SODIUM 500 MG DR TABLET PO SCH ×2 (08:32→17:28)
[2022-06-08] MEDS: LISINOPRIL 10 MG TABLET PO SCH ×2 (08:32→17:27)
[2022-06-08] MEDS: RisperiDONE 3 MG TABLET PO SCH ×3 (08:32→17:00)
[2022-06-08] MEDS: LORazepam 2 MG TABLET PO PRN (17:28)
[2022-06-08 20:26] VITALS: BP 112/67
[2022-06-09 08:13] VITALS: BP 111/79
[2022-06-09] MEDS: DIVALPROEX SODIUM 500 MG DR TABLET PO SCH ×2 (08:30→17:26)
[2022-06-09] MEDS: RisperiDONE 3 MG TABLET PO SCH ×2 (08:30→17:00)
[2022-06-09] MEDS: LORazepam 2 MG TABLET PO PRN ×2 (08:30→17:26)
[2022-06-09] MEDS: LISINOPRIL 10 MG TABLET PO SCH ×2 (08:30→17:26)
[2022-06-09 20:49] VITALS: BP 117/71
[2022-06-10 08:17] LABS: GLUCOMETER DEV NAME(LOC) POC.BV
[2022-06-10] MEDS: DIVALPROEX SODIUM 500 MG DR TABLET PO SCH ×2 (08:23→17:17)
[2022-06-10] MEDS: LISINOPRIL 10 MG TABLET PO SCH ×2 (08:23→17:17)
[2022-06-10] MEDS: RisperiDONE 3 MG TABLET PO SCH ×2 (08:28→17:00)
[2022-06-10 09:48] VITALS: BP 103/83
[2022-06-10] MEDS: LORazepam 2 MG TABLET PO PRN (17:17)
[2022-06-10 20:43] VITALS: BP 104/63
[2022-06-11] MEDS: RisperiDONE 3 MG TABLET PO SCH ×2 (08:17→17:00)
[2022-06-11] MEDS: LISINOPRIL 10 MG TABLET PO SCH ×2 (08:17→17:17)
[2022-06-11] MEDS: DIVALPROEX SODIUM 500 MG DR TABLET PO SCH ×2 (08:17→17:17)
[2022-06-11 08:52] VITALS: BP 104/62
[2022-06-11] MEDS: LORazepam 2 MG TABLET PO PRN (17:17)
[2022-06-11 20:21] VITALS: BP 108/64
[2022-06-12 08:12] VITALS: BP 111/80
[2022-06-12] MEDS: RisperiDONE 3 MG TABLET PO SCH ×2 (08:44→17:00)
[2022-06-12] MEDS: LISINOPRIL 10 MG TABLET PO SCH ×2 (08:44→17:14)
[2022-06-12] MEDS: DIVALPROEX SODIUM 500 MG DR TABLET PO SCH ×2 (08:44→17:15)
[2022-06-12] MEDS: LORazepam 2 MG TABLET PO PRN (17:14)
[2022-06-12 20:22] VITALS: BP 124/71
[2022-06-13 08:48] VITALS: BP 112/62
[2022-06-13] MEDS: DIVALPROEX SODIUM 500 MG DR TABLET PO SCH ×2 (08:54→17:00)
[2022-06-13] MEDS: RisperiDONE 3 MG TABLET PO SCH ×2 (08:54→17:00)
[2022-06-13] MEDS: LISINOPRIL 10 MG TABLET PO SCH ×2 (08:54→17:00)
[2022-06-13] MEDS: RisperiDONE MICROSPHERES 50 MG/2 ML SYRINGE IM SCH (13:31)
[2022-06-13] MEDS: LORazepam 2 MG TABLET PO PRN (17:00)
[2022-06-13 20:21] VITALS: BP 116/62
[2022-06-14 08:31] VITALS: BP 130/79
[2022-06-14] MEDS: RisperiDONE 3 MG TABLET PO SCH ×2 (08:55→16:23)
[2022-06-14] MEDS: DIVALPROEX SODIUM 500 MG DR TABLET PO SCH ×2 (08:55→16:19)
[2022-06-14] MEDS: LISINOPRIL 10 MG TABLET PO SCH ×2 (08:55→16:19)
[2022-06-14] MEDS: LORazepam 2 MG TABLET PO PRN (16:19)
[2022-06-14 20:17] VITALS: BP 119/75
[2022-06-15] MEDS: LISINOPRIL 10 MG TABLET PO SCH ×2 (08:50→17:32)
[2022-06-15] MEDS: DIVALPROEX SODIUM 500 MG DR TABLET PO SCH ×2 (08:50→17:32)
[2022-06-15] MEDS: RisperiDONE 2 MG TABLET PO SCH ×3 (08:50→17:00)
[2022-06-15 08:57] VITALS: BP 100/60
[2022-06-15] MEDS: LORazepam 2 MG TABLET PO PRN (17:32)
[2022-06-15 21:03] VITALS: BP 110/75
[2022-06-16] MEDS: LISINOPRIL 10 MG TABLET PO SCH ×2 (08:20→16:54)
[2022-06-16] MEDS: DIVALPROEX SODIUM 500 MG DR TABLET PO SCH ×2 (08:20→16:54)
[2022-06-16 08:38] VITALS: BP 110/66
[2022-06-16] MEDS: RisperiDONE 2 MG TABLET PO SCH ×2 (09:00→16:54)
[2022-06-16 16:51] VITALS: BP 108/81
[2022-06-16 20:58] VITALS: BP 127/99
[2022-06-17] MEDS: LISINOPRIL 10 MG TABLET PO SCH ×2 (08:20→17:22)
[2022-06-17] MEDS: DIVALPROEX SODIUM 500 MG DR TABLET PO SCH ×2 (08:20→17:22)
[2022-06-17] MEDS: RisperiDONE 2 MG TABLET PO SCH ×2 (08:57→17:22)
[2022-06-17 09:14] VITALS: BP 118/76
[2022-06-17 09:56] LABS: GLUCOMETER DEV NAME(LOC) POC.BV
[2022-06-17 20:35] VITALS: BP 116/72
[2022-06-18] MEDS: DIVALPROEX SODIUM 500 MG DR TABLET PO SCH ×2 (08:41→16:28)
[2022-06-18] MEDS: RisperiDONE 2 MG TABLET PO SCH ×2 (08:41→16:29)
[2022-06-18] MEDS: LISINOPRIL 10 MG TABLET PO SCH ×2 (08:41→16:28)
[2022-06-18 09:03] VITALS: BP 126/77
[2022-06-18 16:25] VITALS: BP 114/79
[2022-06-18 20:36] VITALS: BP 101/68
[2022-06-19] MEDS: DIVALPROEX SODIUM 500 MG DR TABLET PO SCH ×2 (08:38→16:02)
[2022-06-19] MEDS: LISINOPRIL 10 MG TABLET PO SCH ×2 (08:38→16:02)
[2022-06-19] MEDS: RisperiDONE 2 MG TABLET PO SCH ×2 (08:50→16:02)
[2022-06-19 09:00] VITALS: BP 120/78
[2022-06-19 22:29] VITALS: BP 106/71
[2022-06-20 08:06] VITALS: BP 117/76
[2022-06-20] MEDS: RisperiDONE 2 MG TABLET PO SCH ×2 (08:20→16:20)
[2022-06-20] MEDS: LISINOPRIL 10 MG TABLET PO SCH ×2 (08:20→16:20)
[2022-06-20] MEDS: DIVALPROEX SODIUM 500 MG DR TABLET PO SCH ×2 (08:20→16:20)
[2022-06-20] MEDS: LORazepam 2 MG TABLET PO PRN (10:27)
[2022-06-20] MEDS: ZOLPIDEM TARTRATE 10 MG TABLET PO PRN (21:13)
[2022-06-20 21:24] VITALS: BP 116/80
[2022-06-21 08:13] VITALS: BP 122/70
[2022-06-21] MEDS: LISINOPRIL 10 MG TABLET PO SCH ×2 (08:14→16:29)
[2022-06-21] MEDS: DIVALPROEX SODIUM 500 MG DR TABLET PO SCH ×2 (08:14→16:29)
[2022-06-21] MEDS: RisperiDONE 2 MG TABLET PO SCH ×2 (08:14→16:29)
[2022-06-21 16:05] VITALS: BP 128/81
[2022-06-21 20:48] VITALS: BP 110/75
[2022-06-22] MEDS: RisperiDONE 2 MG TABLET PO SCH ×2 (08:08→16:52)
[2022-06-22] MEDS: DIVALPROEX SODIUM 500 MG DR TABLET PO SCH ×2 (08:08→16:52)
[2022-06-22] MEDS: LISINOPRIL 10 MG TABLET PO SCH ×2 (08:08→16:52)
[2022-06-22 20:00] VITALS: BP 127/83
[2022-06-22] MEDS: ZOLPIDEM TARTRATE 10 MG TABLET PO PRN (20:40)
[2022-06-23 08:23] VITALS: BP 117/74
[2022-06-23] MEDS: DIVALPROEX SODIUM 500 MG DR TABLET PO SCH ×2 (08:40→16:31)
[2022-06-23] MEDS: RisperiDONE 2 MG TABLET PO SCH ×2 (08:40→16:31)
[2022-06-23] MEDS: LISINOPRIL 10 MG TABLET PO SCH ×2 (08:40→16:30)
[2022-06-23 16:29] VITALS: BP 120/80
[2022-06-23 21:54] VITALS: BP 120/82
[2022-06-24 07:16] LABS: GLUCOMETER DEV NAME(LOC) POC.BV
[2022-06-24 08:22] VITALS: BP 124/90
[2022-06-24] MEDS: DIVALPROEX SODIUM 500 MG DR TABLET PO SCH ×2 (08:30→16:28)
[2022-06-24] MEDS: LISINOPRIL 10 MG TABLET PO SCH ×2 (08:30→16:28)
[2022-06-24] MEDS: RisperiDONE 2 MG TABLET PO SCH ×2 (08:30→16:28)
[2022-06-24 16:24] VITALS: BP 113/72
[2022-06-24 21:25] VITALS: BP 130/90
[2022-06-25] MEDS: RisperiDONE 2 MG TABLET PO SCH ×2 (08:03→16:34)
[2022-06-25] MEDS: DIVALPROEX SODIUM 500 MG DR TABLET PO SCH ×2 (08:03→16:34)
[2022-06-25] MEDS: LISINOPRIL 10 MG TABLET PO SCH ×2 (08:03→16:34)
[2022-06-25 08:27] VITALS: BP 118/71
[2022-06-25 16:32] VITALS: BP 124/75
[2022-06-25 20:09] VITALS: BP 107/70
[2022-06-26] MEDS: DIVALPROEX SODIUM 500 MG DR TABLET PO SCH ×2 (08:09→16:29)
[2022-06-26] MEDS: RisperiDONE 2 MG TABLET PO SCH ×2 (08:09→16:28)
[2022-06-26] MEDS: LISINOPRIL 10 MG TABLET PO SCH ×2 (08:09→16:28)
[2022-06-26 08:46] VITALS: BP 111/70
[2022-06-26 16:27] VITALS: BP 113/74
[2022-06-26 20:24] VITALS: BP 119/76
[2022-06-27 08:18] VITALS: BP 112/69
[2022-06-27] MEDS: RisperiDONE 2 MG TABLET PO SCH ×2 (08:27→16:23)
[2022-06-27] MEDS: LISINOPRIL 10 MG TABLET PO SCH ×2 (08:27→16:29)
[2022-06-27] MEDS: DIVALPROEX SODIUM 500 MG DR TABLET PO SCH ×2 (08:27→16:23)
[2022-06-27] MEDS: RisperiDONE MICROSPHERES 50 MG/2 ML SYRINGE IM SCH (13:47)
[2022-06-27 16:20] VITALS: BP 103/67
[2022-06-27 20:28] VITALS: BP 111/68
[2022-06-28 08:15] VITALS: BP 123/69
[2022-06-28] MEDS: DIVALPROEX SODIUM 500 MG DR TABLET PO SCH ×2 (09:31→17:36)
[2022-06-28] MEDS: RisperiDONE 2 MG TABLET PO SCH ×2 (09:31→17:36)
[2022-06-28] MEDS: LISINOPRIL 10 MG TABLET PO SCH ×2 (09:31→17:36)
[2022-06-28 20:19] VITALS: BP 107/68
[2022-06-29 08:15] VITALS: BP 115/74
[2022-06-29] MEDS: LISINOPRIL 10 MG TABLET PO SCH ×2 (09:07→16:34)
[2022-06-29] MEDS: DIVALPROEX SODIUM 500 MG DR TABLET PO SCH ×2 (09:07→16:34)
[2022-06-29] MEDS: RisperiDONE 2 MG TABLET PO SCH ×2 (09:07→16:34)
[2022-06-29] MEDS: LORazepam 2 MG TABLET PO PRN (09:14)
[2022-06-29 16:30] VITALS: BP 118/76
[2022-06-29 20:22] VITALS: BP 115/75
[2022-06-30 08:12] VITALS: BP 112/82
[2022-06-30] MEDS: RisperiDONE 2 MG TABLET PO SCH ×2 (08:56→16:36)
[2022-06-30] MEDS: LISINOPRIL 10 MG TABLET PO SCH ×2 (08:56→16:36)
[2022-06-30] MEDS: DIVALPROEX SODIUM 500 MG DR TABLET PO SCH ×2 (08:56→16:36)
[2022-06-30 16:35] VITALS: BP 127/73
[2022-06-30 20:08] VITALS: BP 130/69
[2022-07-01 08:10] VITALS: BP 120/78
[2022-07-01] MEDS: LISINOPRIL 10 MG TABLET PO SCH ×2 (08:34→16:06)
[2022-07-01] MEDS: RisperiDONE 2 MG TABLET PO SCH ×2 (08:34→16:06)
[2022-07-01] MEDS: DIVALPROEX SODIUM 500 MG DR TABLET PO SCH ×2 (08:34→16:06)
[2022-07-01 16:41] LABS: GLUCOMETER DEV NAME(LOC) POC.BV
[2022-07-02 05:23] VITALS: BP 123/75
[2022-07-02 09:30] VITALS: BP 128/78
[2022-07-02] MEDS: DIVALPROEX SODIUM 500 MG DR TABLET PO SCH ×2 (09:48→18:54)
[2022-07-02] MEDS: RisperiDONE 2 MG TABLET PO SCH ×2 (09:48→18:54)
[2022-07-02] MEDS: LISINOPRIL 10 MG TABLET PO SCH ×2 (09:48→18:54)
[2022-07-02 20:19] VITALS: BP 121/77
[2022-07-03 08:13] VITALS: BP 124/98
[2022-07-03] MEDS: LISINOPRIL 10 MG TABLET PO SCH ×2 (08:33→16:42)
[2022-07-03] MEDS: RisperiDONE 2 MG TABLET PO SCH ×2 (08:33→16:42)
[2022-07-03] MEDS: DIVALPROEX SODIUM 500 MG DR TABLET PO SCH ×2 (08:34→16:42)
[2022-07-03 17:17] VITALS: BP 134/78
[2022-07-03 21:09] VITALS: BP 120/63
[2022-07-04 08:23] VITALS: BP 109/71
[2022-07-04] MEDS: LISINOPRIL 10 MG TABLET PO SCH ×2 (08:39→16:30)
[2022-07-04] MEDS: RisperiDONE 2 MG TABLET PO SCH ×2 (08:39→16:30)
[2022-07-04] MEDS: DIVALPROEX SODIUM 500 MG DR TABLET PO SCH ×2 (08:39→16:30)
[2022-07-04 21:35] VITALS: BP_SYST 111; BP_SYST 112; BP_DIAS 62; BP_DIAS 67
[2022-07-04] MEDS: ZOLPIDEM TARTRATE 10 MG TABLET PO PRN (22:39)
[2022-07-05 08:14] VITALS: BP 112/66
[2022-07-05] MEDS: DIVALPROEX SODIUM 500 MG DR TABLET PO SCH ×2 (08:44→17:11)
[2022-07-05] MEDS: RisperiDONE 2 MG TABLET PO SCH ×2 (08:44→17:11)
[2022-07-05] MEDS: LISINOPRIL 10 MG TABLET PO SCH ×2 (08:44→17:12)
[2022-07-05 20:09] VITALS: BP 114/83
[2022-07-06 08:09] VITALS: BP 113/70
[2022-07-06] MEDS: LISINOPRIL 10 MG TABLET PO SCH ×2 (09:07→16:37)
[2022-07-06] MEDS: RisperiDONE 2 MG TABLET PO SCH ×2 (09:07→16:37)
[2022-07-06] MEDS: DIVALPROEX SODIUM 500 MG DR TABLET PO SCH ×2 (09:08→16:37)
[2022-07-06 17:21] VITALS: BP 105/67
[2022-07-06 20:03] VITALS: BP 117/68
[2022-07-07 08:11] VITALS: BP 103/70
[2022-07-07] MEDS: RisperiDONE 2 MG TABLET PO SCH ×2 (09:03→17:14)
[2022-07-07] MEDS: DIVALPROEX SODIUM 500 MG DR TABLET PO SCH ×2 (09:03→17:14)
[2022-07-07] MEDS: LISINOPRIL 10 MG TABLET PO SCH ×3 (09:06→18:14)
[2022-07-07 20:40] VITALS: BP 130/87
[2022-07-08] MEDS: LISINOPRIL 10 MG TABLET PO SCH ×2 (08:57→16:55)
[2022-07-08] MEDS: DIVALPROEX SODIUM 500 MG DR TABLET PO SCH ×2 (08:57→16:55)
[2022-07-08] MEDS: RisperiDONE 2 MG TABLET PO SCH ×2 (08:57→16:55)
[2022-07-08 09:07] VITALS: BP 122/65
[2022-07-08 16:51] VITALS: BP 112/64
[2022-07-08 18:46] LABS: GLUCOMETER DEV NAME(LOC) POC.BV
[2022-07-08 23:53] VITALS: BP 101/60
[2022-07-09 08:06] VITALS: BP 107/65
[2022-07-09] MEDS: DIVALPROEX SODIUM 500 MG DR TABLET PO SCH ×2 (08:53→16:38)
[2022-07-09] MEDS: LISINOPRIL 10 MG TABLET PO SCH ×2 (08:53→16:38)
[2022-07-09] MEDS: RisperiDONE 2 MG TABLET PO SCH ×2 (08:53→16:38)
[2022-07-09 16:37] VITALS: BP 113/72
[2022-07-09] MEDS: LORazepam 2 MG TABLET PO PRN (19:42)
[2022-07-09 20:10] VITALS: BP 107/68
[2022-07-10 08:13] VITALS: BP 112/69
[2022-07-10] MEDS: RisperiDONE 2 MG TABLET PO SCH ×2 (08:33→16:38)
[2022-07-10] MEDS: LISINOPRIL 10 MG TABLET PO SCH ×2 (08:33→16:38)
[2022-07-10] MEDS: DIVALPROEX SODIUM 500 MG DR TABLET PO SCH ×2 (08:33→16:38)
[2022-07-10 16:37] VITALS: BP 119/79
[2022-07-10 20:14] VITALS: BP 106/61
[2022-07-10] MEDS: LORazepam 2 MG TABLET PO PRN (21:55)
[2022-07-11] MEDS: LISINOPRIL 10 MG TABLET PO SCH ×2 (08:15→16:40)
[2022-07-11] MEDS: DIVALPROEX SODIUM 500 MG DR TABLET PO SCH ×2 (08:15→16:40)
[2022-07-11] MEDS: RisperiDONE 2 MG TABLET PO SCH ×2 (08:15→16:40)
[2022-07-11] MEDS: RisperiDONE MICROSPHERES 50 MG/2 ML SYRINGE IM SCH (08:22)
[2022-07-11 08:52] VITALS: BP 112/69
[2022-07-11 16:38] VITALS: BP 111/70
[2022-07-11 20:10] VITALS: BP 108/68
[2022-07-12 08:04] VITALS: BP 140/80
[2022-07-12] MEDS: LISINOPRIL 10 MG TABLET PO SCH ×2 (08:26→16:57)
[2022-07-12] MEDS: RisperiDONE 2 MG TABLET PO SCH ×2 (08:26→16:57)
[2022-07-12] MEDS: DIVALPROEX SODIUM 500 MG DR TABLET PO SCH ×2 (08:26→16:57)
[2022-07-12 16:55] VITALS: BP 117/75
[2022-07-12 20:56] VITALS: BP 117/75
[2022-07-13 08:13] VITALS: BP 129/71
[2022-07-13] MEDS: DIVALPROEX SODIUM 500 MG DR TABLET PO SCH (08:28)
[2022-07-13] MEDS: LISINOPRIL 10 MG TABLET PO SCH (08:28)
[2022-07-13] MEDS: RisperiDONE 2 MG TABLET PO SCH (08:28)
[2022-07-13] MEDS ORDERED: RISP2TAB45 PO (11:46)
== END 2022-07-13 13:00 | disposition home or self-care (01) | DRG 885 ==
LOC: EMS 10:01 → B3A 06-04 02:39 → AHU 06-04 07:50 → B3A 06-04 13:00 → B2S 06-16 11:26 → B2X 06-16 15:36
PROVIDERS: ADMIT Psychiatry & Neurology Psychiatry; ATTEND Psychiatry & Neurology Psychiatry
DX: F25.9 Schizoaffective disorder, unspecified (principal); F15.10 Other stimulant abuse, uncomplicated; Z20.822 Contact with and (suspected) exposure to COVID-19; F32.A Depression, unspecified; F41.9 Anxiety disorder, unspecified; I10 Essential (primary) hypertension; K59.00 Constipation, unspecified; J44.9 Chronic obstructive pulmonary disease, unspecified; Y90.0 Blood alcohol level of less than 20 mg/100 ml; F10.90 Alcohol use, unspecified, uncomplicated; G47.00 Insomnia, unspecified; Z79.899 Other long term (current) drug therapy
CPT/HCPCS: 80053; 80164; 80307; 81003; 85025; 87081; 99285; G0480; J2794; J3535

== ENCOUNTER 2023-06-11 18:42 | Inpatient (IN) | payer MEDICARE, MEDICAID ==
[~2023-06-11] VITALS: Ht 167.6 cm; Wt 70.8 kg
[~2023-06-11 18:42] MED LIST changes: +RISP2TAB45 PO; -TRAZ-184 PO
[2023-06-11] MEDS: DiphenhydrAMINE HCL 50 MG/ML VIAL IM ONE (20:07)
[2023-06-11] MEDS: LORazepam 2 MG/ML VIAL IM ONE (20:07)
[2023-06-11] MEDS: HALOPERIDOL LACTATE 5 MG/ML VIAL IM ONE (20:08)
[2023-06-11 21:10] LABS: EOSINOPHILS % (AUTO) 2.1 % (1.0-6.0); HEMATOCRIT 41.5 % (41-53); HEMOGLOBIN 13.9 g/dL (13.5-17.5); LYMPHOCYTES # (AUTO) 1.9 K/uL (1.0-4.8); LYMPHOCYTES % (AUTO) 28.1 % (22.0-44.0); MEAN CORPUSCULAR HEMOGLOBIN 29.1 pg (26.0-34.0); MEAN CORPUSCULAR HGB CONC 33.6 G/dL (31.0-37.0); MEAN CORPUSCULAR VOLUME 87 fL (80-100); MONOCYTES # (AUTO) 0.4 K/uL (0.1-1.0); MONOCYTES % (AUTO) 6.3 % (2.0-9.0); NEUTROPHILS # (AUTO) 4.2 K/uL (1.8-7.7); NEUTROPHILS % (AUTO) 62.5 % (40.0-70.0); PLATELET COUNT (AUTO) 346 K/uL (150-450); RED BLOOD CELL COUNT(AUTO) 4.79 MIL/uL (4.50-5.90); RED CELL DISTRIBUTION WIDTH 14.4 % (11.5-14.5); WHITE BLOOD COUNT (AUTO) 6.7 K/uL (4.5-11.0)
[2023-06-11 21:20] LABS: ANION GAP 10 mmol/L (8-16); CALCIUM, TOTAL 8.9 mg/dL (8.8-10.5); CARBON DIOXIDE 27 mmol/L (22-29); CHLORIDE 100 mmol/L (98-107); CREATININE 0.65 mg/dL (0.60-1.30); GLOMERULAR FILTR. RATE CALC > 60 mL/min (>60); GLUCOSE,RANDOM 101 mg/dL (70-110); POTASSIUM 3.3 mmol/L (3.5-5.1); SODIUM SERUM 137 mmol/L (136-145); UREA NITROGEN, BLOOD 20 mg/dL (7-18)
[2023-06-11 21:29] LABS: ALCOHOL, BLOOD (SERUM) < 3 mg/dL (0-10)
[2023-06-11 21:44] LABS: ALANINE AMINOTRANSFERASE 22 U/L (12-78); ALBUMIN 3.5 g/dL (3.4-5.0); ALKALINE PHOSPHATASE 94 U/L (46-116); ASPARTATE AMINOTRANSFERASE 24 U/L (15-37); BILIRUBIN,TOTAL 0.4 mg/dL (0.1-1.0); TOTAL PROTEIN, SERUM 7.4 g/dL (6.4-8.2)
[2023-06-11 21:58] LABS: COVID AG,FIA SOURCE NASAL SWAB
[2023-06-11 22:15] LABS: SARS-COV2 (COVID) ANTIGEN,FIA Negative (Negative)
[2023-06-11] MEDS ORDERED: HALOPERIDOL 5 MG TABLET PO PRN (22:15)
[2023-06-11] MEDS ORDERED: LORazepam 2 MG TABLET PO PRN (22:15)
[2023-06-12 00:15] VITALS: BP 122/63; PULSE 97; RESP 18; TEMP 97.8; O2SAT 97
[2023-06-12 08:33] VITALS: BP 140/90; PULSE 84; RESP 19; TEMP 97.8; O2SAT 100
[2023-06-12 09:08] LABS: CHOL/HDL RATIO 2.2 (4.2-7.3); FREE T4 (FREE THYROXINE) 1.14 ng/dL (0.76-1.46); THYROID STIMULATING HORMONE 1.61 uIU/mL (0.36-3.74)
[2023-06-12] MEDS ORDERED: ALBUTEROL SULFATE HFA 90 MCG/PUFF 8 GM INHALER IH PRN (10:15)
[2023-06-12] MEDS ORDERED: NICOTINE 14 MG/24 HOUR PATCH TD PRN (10:15)
[2023-06-12] MEDS ORDERED: PETROLATUM,WHITE 28 GM JELLY TP PRN (10:15)
[2023-06-12] MEDS ORDERED: ACETAMINOPHEN 325 MG TABLET PO PRN (10:15)
[2023-06-12] MEDS ORDERED: CloNIDine HCL 0.1 MG TABLET PO PRN (10:15)
[2023-06-12] MEDS ORDERED: LOPERAMIDE HCL 2 MG CAPSULE PO PRN (10:15)
[2023-06-12] MEDS ORDERED: MAGNESIUM HYDROXIDE SUSPENSION 30 ML UDCUP PO PRN (10:15)
[2023-06-12] MEDS ORDERED: ONDANSETRON HCL 4 MG TABLET PO PRN (10:15)
[2023-06-12] MEDS ORDERED: MAG HYDROX/ALUMINUM HYD/SIMETH ES 30 ML SUSPENSION UDCUP PO PRN (10:15)
[2023-06-12] MEDS ORDERED: GuaiFENesin/D-METHORPHAN [SUGAR-FREE] 200-20MG/10 ML SYRUP UDCUP PO PRN (10:15)
[2023-06-12] MEDS ORDERED: IBUPROFEN 400 MG TABLET PO PRN (10:15)
[2023-06-12] MEDS ORDERED: DOCUSATE SODIUM 100 MG CAPSULE PO PRN (10:15)
[2023-06-12] MEDS: DIVALPROEX SODIUM 500 MG DR TABLET PO SCH (12:56)
[2023-06-12] MEDS: RisperiDONE 2 MG TABLET PO SCH (17:00)
[2023-06-12] MEDS: LISINOPRIL 10 MG TABLET PO SCH (17:00)
[2023-06-12 21:31] VITALS: BP 104/60; PULSE 97; RESP 18; TEMP 98.2; O2SAT 99
[2023-06-13 08:49] LABS: HEMOGLOBIN A1C 5.4 % (3.8-5.6)
[2023-06-13 09:05] LABS: CHOL/HDL RATIO 2.1 (4.2-7.3); POTASSIUM 3.5 mmol/L (3.5-5.1); THYROID STIMULATING HORMONE 0.72 uIU/mL (0.36-3.74)
[2023-06-13 13:18] VITALS: BP 100/66; PULSE 106; RESP 18; TEMP 97.6; O2SAT 96
[2023-06-13 23:29] VITALS: BP 109/66; PULSE 102; RESP 18; TEMP 98.7; O2SAT 98
[2023-06-14 08:36] VITALS: BP 110/68; PULSE 95; RESP 16; TEMP 97.9; O2SAT 97
[2023-06-14 16:45] VITALS: BP 101/65; PULSE 78; RESP 16; O2SAT 100
[2023-06-14 20:05] VITALS: BP 100/65; PULSE 80; RESP 16; TEMP 98; O2SAT 98
[2023-06-15 08:11] VITALS: BP 113/70; PULSE 89; RESP 16; TEMP 98.1; O2SAT 98
[2023-06-15 16:19] VITALS: BP 112/65; PULSE 90; RESP 16; O2SAT 98
[2023-06-15 20:04] VITALS: BP 106/64; PULSE 84; RESP 16; TEMP 98.2; O2SAT 98
[2023-06-16 08:02] VITALS: BP 127/70; PULSE 90; RESP 16; TEMP 98; O2SAT 100
[2023-06-16 16:55] VITALS: BP 118/72; PULSE 86; RESP 17; O2SAT 98
[2023-06-16 17:17] VITALS: BP 107/64; PULSE 93; RESP 18; TEMP 97.5; O2SAT 98
[2023-06-16 20:44] VITALS: BP 110/68; PULSE 90; RESP 18; TEMP 97; O2SAT 99
[2023-06-17 11:49] VITALS: BP 94/54; PULSE 93; RESP 15; TEMP 98.4; O2SAT 97
[2023-06-17 20:30] VITALS: BP 90/61; PULSE 125; RESP 16; TEMP 99.8; O2SAT 96
[2023-06-18 08:32] VITALS: BP 109/70; PULSE 92; RESP 19; TEMP 97.9; O2SAT 100
[2023-06-18 20:31] VITALS: BP 103/60; PULSE 107; RESP 16; TEMP 98.3; O2SAT 98
[2023-06-19 08:29] VITALS: BP 122/68; PULSE 96; RESP 18; TEMP 98.2; O2SAT 99
[2023-06-19 08:33] LABS: APPEARANCE,URINE TURBID (CLEAR); BILIRUBIN,URINE NEGATIVE (NEGATIVE); COLOR,URINE YELLOW (YELLOW); GLUCOSE, URINE (UA) NEGATIVE (NEGATIVE); KETONES,URINE NEGATIVE (NEGATIVE); LEUKOCYTE ESTERASE ,URINE NEGATIVE (NEGATIVE); NITRATE,URINE NEGATIVE (NEGATIVE); OCCULT BLOOD,URINE NEGATIVE (NEGATIVE); PROTEIN,URINE NEGATIVE (NEGATIVE); SPECIFIC GRAVITIY, URINE 1.016 (1.003-1.030); UROBILINOGEN,URINE <=1.0 mg/dL (<=1.0)
[2023-06-19 08:44] LABS: ALCOHOL, URINE DRUG SCREEN NEGATIVE (NEGATIVE); AMPHET/METH SCREEN,URINE NEGATIVE (NEGATIVE); BARBITURATE SCREEN, URINE NEGATIVE (NEGATIVE); BENZODIAZEPINES SCREEN,URINE NEGATIVE (NEGATIVE); CANNABINOID SCREEN,URINE NEGATIVE (NEGATIVE); COCAINE SCREEN,URINE NEGATIVE (NEGATIVE); METHADONE SCREEN, URINE NEGATIVE (NEGATIVE); OPIATE SCREEN,URINE NEGATIVE (NEGATIVE); PHENCYCLIDINE SCREEN,URINE NEGATIVE (NEGATIVE)
[2023-06-19 20:07] VITALS: BP 100/69; PULSE 100; RESP 19; TEMP 98.7; O2SAT 96
[2023-06-20 08:17] VITALS: BP 100/66; PULSE 89; RESP 16; TEMP 97.9; O2SAT 100
[2023-06-20 17:10] VITALS: BP 124/78; PULSE 90; RESP 16; O2SAT 98
[2023-06-20 20:04] VITALS: BP 100/65; PULSE 88; RESP 16; TEMP 98.2; O2SAT 97
[2023-06-21 08:05] VITALS: BP 110/71; PULSE 94; RESP 16; TEMP 97.8; O2SAT 98
[2023-06-21 16:15] VITALS: BP 110/68; PULSE 90; RESP 16; O2SAT 98
[2023-06-21 20:04] VITALS: BP 129/65; PULSE 90; RESP 16; TEMP 98.2; O2SAT 97
[2023-06-22 11:02] VITALS: BP 134/76; PULSE 113; RESP 18; TEMP 97.9; O2SAT 96
[2023-06-22 20:15] VITALS: BP 119/66; PULSE 97; RESP 18; TEMP 98.3; O2SAT 99
[2023-06-23 08:05] VITALS: BP 122/67; PULSE 101; RESP 17; TEMP 98.2; O2SAT 100
[2023-06-23 16:34] VITALS: BP 121/78; PULSE 94; RESP 18
[2023-06-23 22:33] VITALS: BP 121/78; PULSE 94; RESP 18; TEMP 97.4; O2SAT 95
[2023-06-24 08:00] VITALS: BP 122/70; PULSE 109; RESP 18; TEMP 98.8; O2SAT 98
[2023-06-24 20:23] VITALS: BP 112/65; PULSE 89; RESP 18; TEMP 98.3; O2SAT 96
[2023-06-25 08:09] VITALS: BP 122/69; PULSE 96; RESP 19; TEMP 98; O2SAT 100
[2023-06-25 16:33] VITALS: BP 141/70; PULSE 88; RESP 18; TEMP 98.4; O2SAT 98
[2023-06-25 22:35] VITALS: BP 122/78; PULSE 97; RESP 18; TEMP 98.2
[2023-06-26 08:17] VITALS: BP 103/65; PULSE 93; RESP 16; TEMP 98.1; O2SAT 99
[2023-06-26] MEDS: RisperiDONE MICROSPHERES 50 MG/2 ML SYRINGE IM SCH (08:42)
[2023-06-26 16:31] VITALS: BP 121/74; PULSE 93; RESP 18; TEMP 97.4; O2SAT 96
[2023-06-26 20:04] VITALS: BP 109/71; PULSE 69; RESP 18; TEMP 98.5; O2SAT 100
[2023-06-27 08:25] VITALS: BP 110/71; PULSE 95; RESP 18; TEMP 98.1; O2SAT 99
[2023-06-27] MEDS ORDERED: LORazepam 1 MG TABLET PO PRN (15:46)
[2023-06-27 20:19] VITALS: BP 121/63; PULSE 100; RESP 18; TEMP 97.6; O2SAT 100
[2023-06-28 08:13] VITALS: BP 111/74; PULSE 106; RESP 17; TEMP 98; O2SAT 97
[2023-06-28 16:05] VITALS: BP 117/72; PULSE 90; RESP 16; O2SAT 98
[2023-06-28 20:07] VITALS: BP 118/63; PULSE 103; RESP 18; TEMP 97.3; O2SAT 98
[2023-06-29 08:31] VITALS: BP 125/71; PULSE 88; RESP 18; TEMP 97.6; O2SAT 100
[2023-06-29 16:45] VITALS: BP 125/74; PULSE 88; RESP 17; O2SAT 100
[2023-06-29 20:06] VITALS: BP 100/81; PULSE 100; RESP 18; TEMP 97.7; O2SAT 99
[2023-06-30 08:32] VITALS: BP 112/58; PULSE 80; RESP 18; TEMP 98.5; O2SAT 91
[2023-06-30 16:08] VITALS: BP 135/71; PULSE 90; RESP 17; O2SAT 98
[2023-06-30 20:48] VITALS: BP 102/70; PULSE 118; RESP 18; TEMP 98.9; O2SAT 98
[2023-06-30 21:04] VITALS: PULSE 88
[2023-07-01 08:40] VITALS: BP 124/63; PULSE 96; RESP 16; TEMP 97.6; O2SAT 100
[2023-07-01 16:31] VITALS: BP 134/76; PULSE 74; RESP 18
[2023-07-01 20:06] VITALS: BP 124/62; PULSE 103; RESP 18; TEMP 98.7; O2SAT 97
[2023-07-02 08:39] VITALS: BP 119/64; PULSE 92; RESP 16; TEMP 98.2; O2SAT 98
[2023-07-02 20:07] VITALS: BP 117/66; PULSE 76; RESP 20; TEMP 97; O2SAT 100
[2023-07-03] MEDS: ZOLPIDEM TARTRATE 10 MG TABLET PO PRN (00:36)
[2023-07-03 09:34] VITALS: BP 123/74; PULSE 91; RESP 17; TEMP 97.3; O2SAT 99
[2023-07-03 16:24] VITALS: BP 127/67; PULSE 98; RESP 18
[2023-07-03 21:01] VITALS: BP 127/71; PULSE 99; RESP 16; TEMP 98; O2SAT 95
[2023-07-04 08:17] VITALS: BP 128/66; PULSE 103; RESP 16; TEMP 97.8; O2SAT 99
[2023-07-04 16:05] VITALS: BP 115/71; PULSE 95; RESP 16; O2SAT 98
[2023-07-04 20:31] VITALS: BP 117/64; PULSE 99; RESP 16; TEMP 98.4; O2SAT 97
[2023-07-05 08:08] LABS: BASOPHILS % (AUTO) 1.4 % (0.0-2.0); EOSINOPHILS % (AUTO) 5.5 % (1.0-6.0); HEMOGLOBIN 14.2 g/dL (13.5-17.5); LYMPHOCYTES # (AUTO) 2.9 K/uL (1.0-4.8); LYMPHOCYTES % (AUTO) 36.4 % (22.0-44.0); MEAN CORPUSCULAR HEMOGLOBIN 29.4 pg (26.0-34.0); MEAN CORPUSCULAR HGB CONC 33.7 G/dL (31.0-37.0); MEAN CORPUSCULAR VOLUME 87 fL (80-100); MONOCYTES # (AUTO) 0.5 K/uL (0.1-1.0); MONOCYTES % (AUTO) 6.6 % (2.0-9.0); NEUTROPHILS # (AUTO) 3.9 K/uL (1.8-7.7); NEUTROPHILS % (AUTO) 50.1 % (40.0-70.0); PLATELET COUNT (AUTO) 278 K/uL (150-450); RED BLOOD CELL COUNT(AUTO) 4.82 MIL/uL (4.50-5.90); RED CELL DISTRIBUTION WIDTH 13.6 % (11.5-14.5); WHITE BLOOD COUNT (AUTO) 7.8 K/uL (4.5-11.0)
[2023-07-05 08:22] LABS: ANION GAP 8 mmol/L (8-16); CALCIUM, TOTAL 8.7 mg/dL (8.8-10.5); CARBON DIOXIDE 28 mmol/L (22-29); CHLORIDE 97 mmol/L (98-107); CREATININE 0.69 mg/dL (0.60-1.30); GLOMERULAR FILTR. RATE CALC > 60 mL/min (>60); GLUCOSE,RANDOM 105 mg/dL (70-110); POTASSIUM 4.5 mmol/L (3.5-5.1); SODIUM SERUM 133 mmol/L (136-145); UREA NITROGEN, BLOOD 20 mg/dL (7-18)
[2023-07-05 08:47] VITALS: BP 98/54; PULSE 99; RESP 18; TEMP 99.6; O2SAT 98
[2023-07-05 10:16] VITALS: BP 109/74; PULSE 100; TEMP 99.2
[2023-07-05] MEDS ORDERED: TRAZ-252 PO (15:23)
[2023-07-05 16:00] VITALS: BP 108/67; PULSE 72; RESP 17; O2SAT 99
[2023-07-05] MEDS ORDERED: TraZODone HCL 50 MG TABLET PO SCH (21:00)
[2023-07-06] MEDS ORDERED: DIVA-112 PO (17:44)
[2023-07-06] MEDS ORDERED: RISP2TAB45 PO (17:44)
[2023-07-06] MEDS ORDERED: TRAZ-252 PO (17:44)
[2023-07-06] MEDS ORDERED: RISPC50 IM (17:44)
[2023-07-06] MEDS ORDERED: LISI-893 PO (17:44)
== END 2023-07-05 18:52 | disposition home or self-care (01) | DRG 885 ==
LOC: EMS 18:46 → B2X 22:42
PROVIDERS: ADMIT Psychiatry & Neurology Child & Adolescent Psychiatry; ATTEND Psychiatry & Neurology Child & Adolescent Psychiatry
PROC: GZHZZZZ Group Psychotherapy (ICD-10-PCS; principal; 2023-06-14)
DX: F20.0 Paranoid schizophrenia (principal); I10 Essential (primary) hypertension; E87.6 Hypokalemia; Z20.822 Contact with and (suspected) exposure to COVID-19; E78.5 Hyperlipidemia, unspecified; Z91.148 Patient's other noncompliance with medication regimen for other reason; Z87.891 Personal history of nicotine dependence; Z79.899 Other long term (current) drug therapy
CPT/HCPCS: 80048; 80053; 80061; 80164; 80307; 81003; 83036; 84132; 84439; 84443; 85025; 99285; G0480; J1200; J1630; J2060; J2794

== ENCOUNTER 2023-11-20 04:57 | Emergency (ER) | payer MEDICARE, OTHER ==
[~2023-11-20 04:57] MED LIST changes: +TRAZ-252 PO
== END 2023-11-20 06:28 | disposition left against medical advice (07) ==
LOC: EMS 04:58
DX: Z53.21 Procedure and treatment not carried out due to patient leaving prior to being seen by health care provider (principal)